=== PATIENT | female | born 1960 | race Caucasian/White ===

== ENCOUNTER → 2019-01-17 | Outpatient (CLI) | payer OTHER | END | disposition home or self-care (01) | LOC: PLD 14:59 → LAB SHORT 14:59 | DX: D23.71 Other benign neoplasm of skin of right lower limb, including hip (principal); L72.9 Follicular cyst of the skin and subcutaneous tissue, unspecified | CPT/HCPCS: 88304; 88305 ==

== ENCOUNTER → 2020-07-03 | Outpatient (CLI) | payer OTHER ==
[2020-07-04 14:08] LABS: HPV 16 Negative (Negative); HPV 18 Negative (Negative); HPV OTHER HR TYPES Negative (Negative)
== END | disposition home or self-care (01) ==
LOC: LAB 14:16 → LAB SHORT 14:16
PROVIDERS: Obstetrics & Gynecology
DX: Z01.419 Encounter for gynecological examination (general) (routine) without abnormal findings (principal)
CPT/HCPCS: 87624; G0123

== ENCOUNTER 2022-10-14 09:05 | Day surgery (SDC) | payer OTHER ==
[~2022-10-14] VITALS: Ht 172.7 cm; Wt 104.9 kg
[2022-10-14] MEDS ORDERED: FLONASE ALLERG9.9 M2 (09:24)
[2022-10-14] MEDS ORDERED: Crestor20 MG (09:24)
[2022-10-14] MEDS ORDERED: THERA-D2000 UNIT (09:25)
== END 2022-10-14 11:23 | disposition home or self-care (01) ==
LOC: ORSCSDS 09:05
PROVIDERS: Surgery
PROC: 0DJD8ZZ Inspection of Lower Intestinal Tract, Via Natural or Artificial Opening Endoscopic (ICD-10-PCS; principal; 2022-10-14 10:15)
DX: Z12.11 Encounter for screening for malignant neoplasm of colon (principal)
CPT/HCPCS: J2704; J7120

== ENCOUNTER 2025-01-17 12:35 | Day surgery (SDC) | payer MEDICARE ==
[~2025-01-17] VITALS: Ht 172.7 cm; Wt 107.7 kg
[~2025-01-17 12:35] MED LIST: Balanced Salt Epinephrine Irrigation Solution 500 mL IR SCH; Crestor20 MG; FLONASE ALLERG9.9 M2; Lidocaine HCl/Pf 1% 5 ML VIAL XX SCH; Moxifloxacin HCL 0.5 MG/0.1 ML 0.4MLSYR RIGHTEYE SCH; PHENYLEPHRINE\\TROPICAMIDE\\TETRACAINE OPHTHALMIC DILATING SOLN RIGHTEYE PRN; Povidone-Iodine 450 DROP/30 ML Solution ONE; Povidone-Iodine 450 DROP/30 ML Solution RIGHTEYE SCH; Preservision S1 EACH PO; THERA-D2000 UNIT; Tetracaine HCl/Pf 0.5% Opth Soln 4 ml ONE
[2025-01-17] MEDS ORDERED: Midazolam HCl 1MG / ML 2ML Vial ONE (12:50)
[2025-01-17] MEDS ORDERED: FentaNYL Citrate 50 MCG/ML 2 ML Injection ONE (12:50)
[2025-01-17] MEDS ORDERED: ERGO400 (12:52)
[2025-01-17] MEDS ORDERED: ROSUVASTATIN CA20 MG PO (12:52)
[2025-01-17 14:03] VITALS: BP 136/74
--- NOTE | 2025-01-17 14:04 | NUR ---
01/17/25 1404 Alexander Lau PT ADVISED TO MONITOR B/P AT HOME AND FOLLOW UP WITH PCP NEEDED.
== END 2025-01-17 13:53 | disposition home or self-care (01) ==
LOC: ORSCSDS 12:35
PROVIDERS: Student in an Organized Health Care Education/Training Program
PROC: 08RJ3JZ Replacement of Right Lens with Synthetic Substitute, Percutaneous Approach (ICD-10-PCS; principal; 2025-01-17 14:00)
DX: H25.813 Combined forms of age-related cataract, bilateral (principal); H35.362 Drusen (degenerative) of macula, left eye; E78.5 Hyperlipidemia, unspecified; H35.30 Unspecified macular degeneration; Z79.899 Other long term (current) drug therapy
CPT/HCPCS: J2250; J3010; V2632

== ENCOUNTER 2025-01-24 12:36 | Day surgery (SDC) | payer MEDICARE ==
[~2025-01-24] VITALS: Ht 172.7 cm; Wt 234.8 kg
[~2025-01-24 12:36] MED LIST changes: +ERGO400; +Lidocaine HCl/Pf 1% 5 ML VIAL ONE; +Moxifloxacin HCL 0.5 MG/0.1 ML 0.4MLSYR LEFTEYE SCH; -Moxifloxacin HCL 0.5 MG/0.1 ML 0.4MLSYR RIGHTEYE SCH; +NS 500 ML IV ONE; +PHENYLEPHRINE\\TROPICAMIDE\\TETRACAINE OPHTHALMIC DILATING SOLN LEFTEYE PRN; -PHENYLEPHRINE\\TROPICAMIDE\\TETRACAINE OPHTHALMIC DILATING SOLN RIGHTEYE PRN; +Povidone-Iodine 450 DROP/30 ML Solution LEFTEYE SCH; -Povidone-Iodine 450 DROP/30 ML Solution RIGHTEYE SCH; +ROSUVASTATIN CA20 MG PO
--- NOTE | 2025-01-24 13:21 | NUR ---
01/24/25 1321 Chavo Martinez TETRACAINE ADMINISTERED AT 1307, PLEDGET PLACED AT 1308.
[2025-01-24] MEDS ORDERED: NS 500 ML IV ONE (13:22)
[2025-01-24] MEDS ORDERED: Midazolam HCl 1MG / ML 2ML Vial ONE (13:26)
[2025-01-24] MEDS ORDERED: FentaNYL Citrate 50 MCG/ML 2 ML Injection ONE (13:27)
[2025-01-24 13:48] VITALS: BP 127/73
== END 2025-01-24 13:58 | disposition home or self-care (01) ==
LOC: ORSCSDS 12:36
PROVIDERS: Student in an Organized Health Care Education/Training Program
PROC: 08RK3JZ Replacement of Left Lens with Synthetic Substitute, Percutaneous Approach (ICD-10-PCS; principal; 2025-01-24 14:00)
DX: H25.812 Combined forms of age-related cataract, left eye (principal); H21.81 Floppy iris syndrome; Z96.1 Presence of intraocular lens; H35.30 Unspecified macular degeneration; E78.5 Hyperlipidemia, unspecified; Z79.899 Other long term (current) drug therapy
CPT/HCPCS: J2003; J2250; J3010; J7040; V2632